=== PATIENT | male | born 1940 | race Caucasian/White ===

== ENCOUNTER 2020-12-22 22:59 | Inpatient (IN) | payer OTHER ==
[~2020-12-22] VITALS: Ht 188 cm; Wt 83.9 kg
[2020-12-23 03:43] LABS: HEMOGLOBIN 14.9 gm/dl (14.0-17.5); RED BLOOD COUNT 4.76 M/UL (4.20-5.50); WHITE BLOOD COUNT 15.8 K/UL (4.5-11.0)
[2020-12-23 04:10] LABS: BUN/CREATININE RATIO 16 (0-10)
[2020-12-23] MEDS ORDERED: CELECOXIB200 MG PO (08:53)
[2020-12-23] MEDS ORDERED: CETIRIZINE HCL10 MG PO (08:54)
[2020-12-23] MEDS ORDERED: PREDNISOLONE AC10 ML EYEBOTH (08:56)
[2020-12-23] MEDS ORDERED: LATANOPROST2.5 ML EYERT (08:57)
[2020-12-24 05:47] LABS: HEMOGLOBIN 13.8 gm/dl (14.0-17.5); RED BLOOD COUNT 4.52 M/UL (4.20-5.50)
[2020-12-24 06:10] LABS: BUN/CREATININE RATIO 24 (0-10)
[2020-12-25 02:37] LABS: HEMOGLOBIN 14.2 gm/dl (14.0-17.5); RED BLOOD COUNT 4.68 M/UL (4.20-5.50); WHITE BLOOD COUNT 14.7 K/UL (4.5-11.0)
[2020-12-25 06:19] LABS: BUN/CREATININE RATIO 21 (0-10)
[2020-12-25] MEDS ORDERED: ELIQUIS5 M1 PO (10:43)
[2020-12-25] MEDS ORDERED: DILTIAZEM 24HR120 M1 PO (10:43)
[2020-12-25] MEDS ORDERED: POLYETHYLENE GL17 GM PO (10:43)
[2020-12-26 02:20] LABS: HEMOGLOBIN 12.3 gm/dl (14.0-17.5)
[2020-12-26 02:21] LABS: RED BLOOD COUNT 4.02 M/UL (4.20-5.50)
[2020-12-26 02:41] LABS: BUN/CREATININE RATIO 30 (0-10)
[2020-12-26] MEDS ORDERED: HYDROCODON-ACE1 EAC4 PO (12:06)
[2020-12-26] MEDS ORDERED: BETAPACE 80MG T80 MG PO (12:06)
[2020-12-26] MEDS ORDERED: ELIQUIS5 MG PO (14:10)
== END 2020-12-26 16:30 | disposition home health service (06) | DRG 982 ==
LOC: ER1 22:59 → ZEROF 12-23 06:02 → PROG CARE 12-23 06:02
PROVIDERS: Emergency Medicine; Internal Medicine; Orthopaedic Surgery; ADMIT Internal Medicine
PROC: B24BZZZ Ultrasonography of Heart with Aorta (ICD-10-PCS; 2020-12-23)
PROC: 0RRJ00Z Replacement of Right Shoulder Joint with Reverse Ball and Socket Synthetic Substitute, Open Approach (ICD-10-PCS; principal; 2020-12-25 13:05)
DX: I48.91 Unspecified atrial fibrillation (principal); S42.211A Unspecified displaced fracture of surgical neck of right humerus, initial encounter for closed fracture; S42.251A Displaced fracture of greater tuberosity of right humerus, initial encounter for closed fracture; I50.32 Chronic diastolic (congestive) heart failure; S42.291A Other displaced fracture of upper end of right humerus, initial encounter for closed fracture; W01.0XXA Fall on same level from slipping, tripping and stumbling without subsequent striking against object, initial encounter; M19.90 Unspecified osteoarthritis, unspecified site; H54.62 Unqualified visual loss, left eye, normal vision right eye; Z83.3 Family history of diabetes mellitus; Z96.641 Presence of right artificial hip joint; Z90.49 Acquired absence of other specified parts of digestive tract; J30.9 Allergic rhinitis, unspecified; I27.20 Pulmonary hypertension, unspecified; Z20.822 Contact with and (suspected) exposure to COVID-19
CPT/HCPCS: ECHO; 36415; 70450; 71045; 72125; 73030; 73200; 73502; 80048; 80053; 82550; 82553; 83735; 83874; 84439; 84443; 84484; 85018; 85025; 85027; 85652; 86140; 90471; 93005; 93306; 96365; 96366; 96372; 99285; C1713; C1776; J0690; J1100; J1650; J2001; J2370; J2405; J2704; J2710; J2795; J3370; J7120; U0002